=== PATIENT | female | born 1950 | race Caucasian/White ===

== ENCOUNTER → 2017-03-15 | Outpatient (CLI) | payer MEDICARE, OTHER ==
--- NOTE | 2017-03-20 13:04 | MM ---
Reason for exam: screening (asymptomatic). Last mammogram was performed 1 year ago. History: Patient is postmenopausal. Took hormonal contraceptives for 2 years. Physical Findings: A clinical breast exam by your physician is recommended on an annual basis and results should be correlated with mammographic findings. MG 3D Screening Mammo W/Cad Bilateral CC and MLO view(s) were taken. Prior study comparison: March 13, 2016, bilateral MG 3d screening mammo w/cad. March 04, 2015, bilateral MG screening mammo w CAD. January 05, 2014, bilateral MG diagnostic mammo w CAD ZIYAD. There is chronic nodularity bilaterally. No significant changes when compared with prior studies. ASSESSMENT: Benign, BI-RAD 2 RECOMMENDATION: Routine screening mammogram of both breasts in 1 year.
== END | disposition home or self-care (01) ==
LOC: RADMAMWWP 13:07
PROVIDERS: ATTEND Internal Medicine
DX: Z12.31 Encounter for screening mammogram for malignant neoplasm of breast (principal)
CPT/HCPCS: 77063; G0202

== ENCOUNTER → 2018-05-06 | Outpatient (CLI) | payer MEDICARE, OTHER ==
--- NOTE | 2018-05-08 11:17 | MM ---
Reason for exam: screening (asymptomatic). Last mammogram was performed 1 year and 2 months ago. History: Patient is postmenopausal. Took hormonal contraceptives for 2 years. MG 3D Screening Mammo W/Cad Bilateral CC and MLO view(s) were taken. Prior study comparison: March 15, 2017, bilateral MG 3d screening mammo w/cad. March 13, 2016, bilateral MG 3d screening mammo w/cad. There are scattered fibroglandular densities. Chronic nodularity bilateral. No significant changes when compared with prior studies. ASSESSMENT: Benign, BI-RAD 2 RECOMMENDATION: Routine screening mammogram of both breasts in 1 year.
== END ==
LOC: RADMAMWWP 07:39
PROVIDERS: ATTEND Internal Medicine
DX: Z12.31 Encounter for screening mammogram for malignant neoplasm of breast (principal)
CPT/HCPCS: 77063; 77067

== ENCOUNTER → 2019-05-28 | Outpatient (CLI) | payer MEDICARE ==
--- NOTE | 2019-06-01 09:49 | MM ---
Reason for exam: screening (asymptomatic). Last mammogram was performed 1 year and 1 month ago. History: Patient is postmenopausal. Took hormonal contraceptives for 2 years. Physical Findings: A clinical breast exam by your physician is recommended on an annual basis and results should be correlated with mammographic findings. MG 3D Screening Mammo W/Cad Bilateral CC and MLO view(s) were taken. Prior study comparison: May 06, 2018, bilateral MG 3d screening mammo w/cad. March 15, 2017, bilateral MG 3d screening mammo w/cad. The breast tissue is heterogeneously dense. This may lower the sensitivity of mammography. There are round oval circumscribed bilateral masses throughout both breasts however two on the right appear larger, both in the upper outer quadrant at middle depth 6.5cm from nipple and 8cm from nipple. Benign appearing bilateral calcifications. No suspicious abnormality on the left. ASSESSMENT: Incomplete: need additional imaging evaluation, BI-RAD 0 RECOMMENDATION: Ultrasound of the right breast. (upper outer quadrant) [facility] will attempt to contact patient to return for ultrasound.
== END | disposition home or self-care (01) ==
LOC: RADMAMWWP 12:23
PROVIDERS: ATTEND Internal Medicine
DX: Z12.31 Encounter for screening mammogram for malignant neoplasm of breast (principal)
CPT/HCPCS: 77063; 77067

== ENCOUNTER → 2019-06-16 | Outpatient (CLI) | payer MEDICARE ==
--- NOTE | 2019-06-17 11:54 | USB ---
Reason for exam: additional evaluation requested from abnormal screening. History: Patient is postmenopausal. Took hormonal contraceptives for 2 years. Physical Findings: Nurse did not find any significant physical abnormalities on exam. US Breast Workup Limited RT Technologist: Michelle Blanco Right limited breast ultrasound including focal area of concern, retroareolar and axilla demonstrates a 0.8 x 0.6 x 0.4cm cystic lesion at 9 o'clock, a 0.7 x 0.6 x 0.4cm cystic lesion at 9 o'clock and a 0.3 x 0.3 x 0.2cm cystic lesion at 2 o'clock. These results were verbally communicated with the patient and result sheet given to the patient on 06/16/19. ASSESSMENT: Probably benign, BI-RAD 3 RECOMMENDATION: Follow-up diagnostic mammogram of the right breast in 6 months.
== END | disposition home or self-care (01) ==
LOC: RADUSWWP 14:36
PROVIDERS: ATTEND Internal Medicine
DX: R92.8 Other abnormal and inconclusive findings on diagnostic imaging of breast (principal)

== ENCOUNTER → 2020-03-23 | Outpatient (CLI) | payer MEDICARE ==
--- NOTE | 2020-03-24 11:00 | MM ---
Reason for exam: follow-up at short interval from prior study. Last mammogram was performed 10 months ago. History: Patient is postmenopausal. Took hormonal contraceptives for 2 years. MG 3D Diag Mammo W/Cad RT CC and MLO view(s) were taken of the right breast. Prior study comparison: May 28, 2019, bilateral MG 3d screening mammo w/cad. May 06, 2018, bilateral MG 3d screening mammo w/cad. The breast tissue is heterogeneously dense. This may lower the sensitivity of mammography. There is chronic nodularity in the left breast. There is no dominant lesion. No significant new findings when compared with previous films. These results were verbally communicated with the patient and result sheet given to the patient on 03/23/20. ASSESSMENT: Benign, BI-RAD 2 RECOMMENDATION: Return to routine screening mammogram schedule for both breasts. Back on schedule.
== END | disposition home or self-care (01) ==
LOC: RADMAMWWP 14:11
PROVIDERS: ATTEND Internal Medicine
DX: R92.8 Other abnormal and inconclusive findings on diagnostic imaging of breast (principal)
CPT/HCPCS: 77065; G0279; 77061

== ENCOUNTER → 2020-08-05 | Outpatient (CLI) | payer MEDICARE ==
--- NOTE | 2020-08-08 08:24 | MM ---
Reason for exam: screening (asymptomatic). Last mammogram was performed 4 months ago. History: Patient is postmenopausal. Took hormonal contraceptives for 2 years. Physical Findings: A clinical breast exam by your physician is recommended on an annual basis and results should be correlated with mammographic findings. MG 3D Screening Mammo W/Cad Bilateral CC and MLO view(s) were taken. Prior study comparison: March 23, 2020, right breast MG 3d diag mammo w/cad RT. May 28, 2019, bilateral MG 3d screening mammo w/cad. The breast tissue is heterogeneously dense. This may lower the sensitivity of mammography. There are benign appearing round calcifications bilaterally. There is chronic nodularity bilaterally. There is no new dominant lesion. There is no discrete abnormality. ASSESSMENT: Benign, BI-RAD 2 RECOMMENDATION: Routine screening mammogram of both breasts in 1 year.
== END | disposition home or self-care (01) ==
LOC: RADMAMWWP 11:04
PROVIDERS: ATTEND Internal Medicine
DX: Z12.31 Encounter for screening mammogram for malignant neoplasm of breast (principal)
CPT/HCPCS: 77063; 77067

== ENCOUNTER → 2020-11-23 | Outpatient (CLI) | payer MEDICARE ==
--- NOTE | 2020-11-23 12:59 | US ---
EXAMINATION TYPE: US venous doppler duplex LE LT DATE OF EXAM: 11/23/2020 12:42 PM COMPARISON: NONE CLINICAL HISTORY: R22.42 SWELLING LEFT LOWER LIMB. Swelling left ankle and foot x 3 days; patient sta alcides fell on left leg 3 weeks ago. SIDE PERFORMED: left TECHNIQUE: The lower extremity deep venous system is examined utilizing real time linear array sonog cielo with graded compression, doppler sonography and color-flow sonography. VESSELS IMAGED: Common Femoral Vein Deep Femoral Vein Greater Saphenous Vein * Femoral Vein: Dual patent and compressible veins noted here Popliteal Vein Small Saphenous Vein * Proximal Calf Veins (* superficial vessels) Left Leg: Echogenic thickening of valves noted at left distal popliteal vein causing nonmobility, ot herwise is negative for DVT. Edema channels are imaged at left ankle. IMPRESSION: 1. No evidence of deep venous thrombosis of the left lower extremity. 2. There is extensive edema within the left ankle subcutaneous soft tissues. 3. Echogenic thickening of the valves at the distal left popliteal vein causing nonmobility.
--- NOTE | 2020-11-23 16:00 | XR ---
Left hand HISTORY: Pain in left hand, trauma 3 weeks prior 3 views of left hand Bone mineralization is reduced. There are arthropathy changes at the interphalangeal joints. Alignmen t is maintained. I question some irregularity of the triquetral bone on the frontal view. There may b e some associated soft tissue swelling. impression: Correlate for point tenderness the level of the triquetrum fracture, CT may be of benefit .
== END | disposition home or self-care (01) ==
LOC: RADUSWWP 11:49
PROVIDERS: ATTEND Internal Medicine
DX: M79.642 Pain in left hand (principal); R22.42 Localized swelling, mass and lump, left lower limb

== ENCOUNTER → 2021-03-17 | Outpatient (CLI) | payer MEDICARE ==
--- NOTE | 2021-03-19 08:02 | CT ---
EXAMINATION TYPE: CT hand LT w con DATE OF EXAM: 03/17/2021 COMPARISON: Left hand x-ray November 23, 2020 HISTORY: Continued left hand and wrist pain following fall injury months ago CT DLP: 198.8 mGycm Automated exposure control for dose reduction was used. CONTRAST: Performed with IV Contrast, patient injected with 100 mL of Isovue 300. FINDINGS: There is moderate to severe narrowing with mild to moderate spurring throughout the PIP and DIP joints of the phalanges. Findings are greatest over the second and third PIP joints. Relative sp aring of the MCP joints is noted. There is subchondral cystic change with narrowing at the trapezoid articulation with overlying pisifo rm. There is moderate triscaphe joint narrowing. There is moderate narrowing at the ulnar base of the first metacarpal with mild spurring. No acute or subacute displaced fracture is evident. Distal radi ocarpal joints are maintained. No suspicious soft tissue swelling or focal fluid collection. Carpal tunnel is preserved. No suspicio us enhancement noted. IMPRESSION: Multilevel degenerative changes as detailed above.
== END | disposition home or self-care (01) ==
LOC: RADCTMAIN 16:44
PROVIDERS: ATTEND Internal Medicine
DX: M19.042 Primary osteoarthritis, left hand (principal); M19.032 Primary osteoarthritis, left wrist
CPT/HCPCS: 82565; 84520; 36415; 73201; Q9967

== ENCOUNTER → 2021-12-18 | Outpatient (CLI) | payer MEDICARE ==
--- NOTE | 2021-12-18 11:56 | BD ---
EXAMINATION TYPE: Axial Bone Density DATE OF EXAM: 12/18/2021 COMPARISON: NONE CLINICAL HISTORY: 71 year old Female. ICD-10 CODE: M85.88 other disorder of bone Height: 62.5 Weight: 261.2 FRAX RISK QUESTIONS: Alcohol (3 or more units per day): no Family History (Parent hip fracture): no Glucocorticoids (More than 3mos): no (Ex: prednisone, prednisolone, methylprednisolone, dexamethasone, and hydrocortisone). History of Fracture in Adulthood: no Secondary Osteoporosis: 1. Type 1 Diabetes: no 2. Hyperthyroidism: no 3. Menopause before 45: yes 4. Malnutrition: no 5. Chronic liver disease: no Rheumatoid Arthritis: no Current Tobacco Use: no RISK FACTORS HISTORY OF: Surgery to Spine/Hip(right/left)/Wrist (right/left): no Family History of Osteoporosis: no Active: yes Diet low in dairy products/other sources of calcium: yes Postmenopausal woman: yes Lost more than 2 inches in height since high school: no MEDICATIONS: diabetic meds Additional History: EXAM MEASUREMENTS: Bone mineral densitometry was performed using the [employer] System. Bone mineral density as measured about the Lumbar spine is: ----- L1-L4(G/cm2): 1.550 T Score Values are as follows: ----- L1: 2.1 ----- L2: 2.8 ----- L3: 4.1 ----- L4: 3.1 ----- L1-L4: 3.1 Bone mineral density has: increased 3.5 % since study of: 01.05.2014 Bone mineral density about the R hip (g/cm2): 1.052 Bone mineral density about the L hip (g/cm2): 1.018 T Score values are as follows: -----R Neck: 0.1 -----L Neck: -0.1 -----R Total: 1.0 -----L Total: 0.7 Bone mineral density has: decreased -3.6 % since study of: 01.05.2014 FRAX%s: The graph provided illustrates a 2.1% chance for a major osteoporotic fx and a 0.2% chance fo r the hips probability for fx in 10 years time. IMPRESSION: No evidence for osteoporosis or osteopenia NOTE: T-SCORE=SD OF THE YOUNG ADULT MEAN.
--- NOTE | 2021-12-19 19:54 | MM ---
Reason for Exam: Screening (asymptomatic). Last mammogram was performed 1 year(s) and 5 month(s) ago. Patient History: Menarche at age 11. First Full-Term at age 16. Postmenopausal. Patient used Hormonal Contraceptives for 2 years. Risk Values: Kelley 5 year model risk: 1.3%. NCI Lifetime model risk: 3.1%. Prior Study Comparison: 05/28/2019 Bilateral Screening Mammogram, [facility]. 03/23/2020 Right Diagnostic Mammogram, [facility]. 08/05/2020 Bilateral Screening Mammogram, [facility]. Tissue Density: There are scattered fibroglandular densities. Findings: Analyzed By CAD. Extensive bilateral circumscribed breast nodularity appears largely chronic. Some of the nodules show slight interval fluctuation. This is an overall benign pattern. Some scattered benign vascular calcifications as well as diffuse and grouped punctate/round calcifications are also noted. No significant change from prior exams. Overall Assessment: Benign, BI-RAD 2 Management: Screening Mammogram of both breasts in 1 year. 1. A clinical breast exam by your physician is recommended on an annual basis and results should be correlated with mammographic findings. 2. Patient should continue monthly self breast exams. 3. This exam should not preclude additional follow-up of suspicious palpable abnormalities. Electronically signed and approved by: Leilani Paula M.D. Radiologist
== END | disposition home or self-care (01) ==
LOC: RADMAMWWP 07:19
PROVIDERS: ATTEND Internal Medicine
DX: Z12.31 Encounter for screening mammogram for malignant neoplasm of breast (principal); M85.88 Other specified disorders of bone density and structure, other site
CPT/HCPCS: 77063; 77067; 77080

== ENCOUNTER → 2023-01-03 | Outpatient (CLI) | payer MEDICARE ==
--- NOTE | 2023-01-03 10:05 | XR ---
EXAMINATION TYPE: XR Hip Complete RT DATE OF EXAM: 01/03/2023 9:58 AM INDICATION: Patient age:Female; 72 years old; Reason for study: M54.50; [facility]. COMPARISON: CT abdomen and pelvis 10/21/2014 TECHNIQUE: The right hip was examined in the frontal and lateral projections . FINDINGS: No evidence of any acute osseous pathology, joint dislocation, or soft tissue swelling. Mil d medial joint space narrowing with acetabular sclerosis and marginal acetabular spurring noted. IMPRESSION: 1. No acute osseous pathology. 2. Mild osteoarthritic changes of the right hip.
--- NOTE | 2023-01-03 10:10 | XR ---
EXAMINATION TYPE: XR lumbosacral spine min 4V DATE OF EXAM: 01/03/2023 9:58 AM INDICATION: Patient age:Female; 72 years old; Reason for study: M54.50; [facility]. COMPARISON: None TECHNIQUE: Frontal, lateral , bilateral oblique and coned in L5-S1 lateral views of the spine. FINDINGS: There are 5 lumbar type vertebral bodies identified. No evidence of any acute osseous patho logy. No evidence of loss of vertebral body height is seen. Grade 1 anterolisthesis of L5 on S1 with bilateral pars defects. Multilevel disc space narrowing with endplate sclerosis and anterior osteoph ytosis. Multilevel facet arthropathy. Cholecystectomy clips in the right upper quadrant. IMPRESSION: 1. No acute process. 2. Grade 1 anterolisthesis of L5 on S1 with bilateral pars defects. Mild to moderate multilevel dege nerative disc disease and facet arthropathy.
== END | disposition home or self-care (01) ==
LOC: RADXRMAIN 09:22
PROVIDERS: ATTEND Internal Medicine
DX: M51.37 Other intervertebral disc degeneration, lumbosacral region (principal); M43.17 Spondylolisthesis, lumbosacral region; M47.817 Spondylosis without myelopathy or radiculopathy, lumbosacral region; M16.11 Unilateral primary osteoarthritis, right hip
CPT/HCPCS: 72110; 73502

== ENCOUNTER → 2023-01-10 | Outpatient (CLI) | payer MEDICARE ==
--- NOTE | 2023-01-11 08:09 | MM ---
Reason for Exam: Screening (asymptomatic). Last mammogram was performed 1 year(s) and 1 month(s) ago. Patient History: Menarche at age 11. First Full-Term at age 16. Postmenopausal. Patient used Hormonal Contraceptives for 2 years. Risk Values: Kelley 5 year model risk: 1.3%. NCI Lifetime model risk: 3.0%. Prior Study Comparison: 03/23/2020 Right Diagnostic Mammogram, [facility]. 08/05/2020 Bilateral Screening Mammogram, [facility]. 12/18/2021 Bilateral MG 3D screening mammo w/cad, [facility]. Tissue Density: The breast tissue is heterogeneously dense. This may lower the sensitivity of mammography. Findings: Analyzed By CAD. Pattern appears stable. Chronic nodularity is present bilaterally. There are stable appearing group of calcifications within the left breast. No suspicious groups of microcalcifications, spiculated or lobular masses, architectural distortion or other secondary signs of malignancy are mammographically apparent. Overall Assessment: Benign, BI-RAD 2 Management: Screening Mammogram of both breasts in 1 year. A negative mammogram report should not preclude additional follow up of suspicious palpable abnormalities. Patient should continue monthly self breast exam. A clinical breast exam by your physician is recommended on an annual basis and results should be correlated with mammographic findings. Electronically signed and approved by: Solitario Vogel D.O. Radiologis
== END | disposition home or self-care (01) ==
LOC: RADMAMWWP 14:59
PROVIDERS: ATTEND Internal Medicine
DX: Z12.31 Encounter for screening mammogram for malignant neoplasm of breast (principal); Z78.0 Asymptomatic menopausal state
CPT/HCPCS: 77063; 77067

== ENCOUNTER → 2024-01-13 | Outpatient (CLI) | payer MEDICARE ==
--- NOTE | 2024-01-13 14:04 | MR ---
EXAMINATION TYPE: MR shoulder RT wo con DATE OF EXAM: 01/13/2024 COMPARISON: None HISTORY: Right shoulder pain, injury 1 month ago. TECHNIQUE: Multiplanar, multisequence imaging of the right shoulder is performed without contrast. FINDINGS: There is marked osteoarthritic change of the right AC joint resulting in moderate shoulder impingemen t. There is no glenohumeral joint effusion. There are multiple subchondral cysts in the lateral and ante rior humeral head. There are full-thickness tears of both the infraspinatus and supraspinatus tendons just proximal to t heir insertion on the greater tuberosity. There is thinning of the tendons proximally with slight ret raction of the musculotendinous junction immediately. The subscapularis tendon is intact. The biceps tendon is small in size consistent with atrophy. The b iceps anchor is intact. The cartilaginous labrum appears grossly intact. IMPRESSION: Multiple rotator cuff tears and shoulder impingement as described above.
== END | disposition home or self-care (01) ==
LOC: RADMRIMAIN 10:50
PROVIDERS: ATTEND Orthopaedic Surgery
DX: M25.811 Other specified joint disorders, right shoulder (principal); M75.101 Unspecified rotator cuff tear or rupture of right shoulder, not specified as traumatic

== ENCOUNTER → 2024-01-13 | Outpatient (CLI) | payer MEDICARE ==
--- NOTE | 2024-01-16 13:56 | MM ---
Reason for Exam: Screening (asymptomatic). Last screening mammogram was performed 12 month(s) ago. Patient History: Menarche at age 11. First Full-Term at age 16. Postmenopausal. Patient used Hormonal Contraceptives for 2 years. Risk Values: Kelley 5 year model risk: 1.3%. NCI Lifetime model risk: 2.8%. Prior Study Comparison: 08/05/2020 Bilateral Screening Mammogram, [facility]. 12/18/2021 Bilateral MG 3D screening mammo w/cad, [facility]. 01/10/2023 Bilateral MG 3D screening mammo w/cad, [facility]. Tissue Density: There are scattered areas of fibroglandular density. Findings: Analyzed By CAD. Right breast: There is no suspicious group of microcalcifications or new suspicious mass. Benign-appearing calcifications right breast. Left breast: There is no suspicious group of microcalcifications or new suspicious mass. Benign-appearing calcifications left breast. Overall Assessment: Benign, BI-RAD 2 Management: Screening Mammogram of both breasts in [address] [facility] will attempt to contact patient to return for supplemental views and ultrasound if indicated. Patient should continue monthly self-breast exams. A clinical breast exam by your physician is recommended on an annual basis. This exam should not preclude additional follow-up of suspicious palpable abnormalities. Note on Kelley scores and lifetime risk: 1. A Kelley score greater than 3% is considered moderate risk. If this is the case, consider specialist referral to assess eligibility for a risk reducing agent. 2. If overall lifetime risk for the development of breast cancer is 20% or higher, the patient may qualify for future screening with alternating mammogram and breast MRI. Electronically signed and approved by: Ronan Suazo DO
== END | disposition home or self-care (01) ==
LOC: RADMAMWWP 11:39
PROVIDERS: ATTEND Internal Medicine
DX: Z12.31 Encounter for screening mammogram for malignant neoplasm of breast (principal); Z78.0 Asymptomatic menopausal state
CPT/HCPCS: 77063; 77067

== ENCOUNTER 2024-02-17 09:00 | Day surgery (SDC) | payer MEDICARE ==
[~2024-02-17 09:00] MED LIST: DEXAMETHASONE SOD PHOSPHATE 4 MG/ML 1 ML VIAL ONE; LACTATED RINGERS 1,000 ML BAG ONE; MIDAZOLAM 2 MG/2 ML VIAL ONE; ONDANSETRON 4 MG/2 ML VIAL ONE; ROPIVACAINE 5 MG/ML 30 ML VIAL ONE; fentaNYL (PF) 50 MCG/ML 2 ML AMP ONE
[2024-02-17] MEDS ORDERED: SUCCINYLCHOLINE CHLORIDE 200 MG/10 ML VIAL IV ONE (09:47)
[2024-02-17] MEDS ORDERED: PROPOFOL 10 MG/ML 20 ML VIAL IV ONE (09:47)
[2024-02-17] MEDS ORDERED: LIDOCAINE 1% INJ 10MG/ML (20 ML MDV) ONE (09:47)
[2024-02-17] MEDS ORDERED: PHENYLEPHRINE-0.9% NACL SYG 1,000 MCG/10 ML SYRINGE ONE (09:47)
[2024-02-17] MEDS ORDERED: fentaNYL (PF) 50 MCG/ML 2 ML AMP ONE (09:47)
[2024-02-17] MEDS ORDERED: SODIUM CHLORIDE 0.9% IRRIG 3,000 ML BAG IRRIGATION ONE (09:52)
--- NOTE | 2024-02-28 15:51 | HP ---
HISTORY AND PHYSICAL DATE OF SURGERY: 02/17/2024. HISTORY OF PRESENT ILLNESS: Gabriella Quintero is a 73-year-old patient seen with progressive right shoulder pain. We discussed options regarding treatment. She elected to proceed with right shoulder arthroscopy. Consent was obtained. Medical clearance was provided by Dr. Rincon. PAST MEDICAL HISTORY: Hypertension, qqt-ldddult-yqvvjlkmq diabetes, and hyperlipidemia. PAST SURGICAL HISTORY: Cholecystectomy, herniorrhaphy, total knee arthroplasty, ganglion cyst excision, and colostomy. DAILY MEDICATIONS: 1. Bisoprolol/hydrochlorothiazide. 2. Celebrex. 3. Metformin. 4. Losartan. 5. Ozempic. 6. Rosuvastatin. 7. Tylenol. ALLERGIES: Morphine, codeine, and penicillin. SOCIAL HISTORY: She denies tobacco use. PHYSICAL EVALUATION OF THE RIGHT SHOULDER: Flexion is 90 degrees. Abduction is 80 degrees. External rotation is 30 degrees with pain and weakness. Tenderness along the anterolateral acromion rotator cuff insertion site. Impingement is positive at 70 degrees. Drop-arm sign is positive. Distal neurovascular exam is intact. RADIOGRAPHS: Radiographs of the right shoulder showed type 2 acromion, calcific body consistent with calcific tendinitis as well as cystic changes of the greater tuberosity. MRI of the right shoulder showed rotator cuff tears, acromioclavicular joint osteoarthritis. IMPRESSION: 1. Right shoulder impingement with rotator cuff tears. 2. Right shoulder acromioclavicular joint osteoarthritis. 3. Hypertension. 4. Hyperlipidemia. 5. Rcm-wqymwxo-rutqvyqan diabetes. PLAN: Right shoulder arthroscopy with subacromial decompression, arthroscopic rotator cuff repair, Kianna procedure, and debridement. MMODL / IJN: [id number] /
--- NOTE | 2024-02-28 15:52 | OP ---
OPERATIVE REPORT DATE OF SERVICE : 02/17/2024 PREOPERATIVE DIAGNOSIS: Right shoulder impingement. POSTOPERATIVE DIAGNOSES: 1. Right shoulder rotator cuff tear. 2. Right shoulder impingement. 3. Right shoulder acromioclavicular joint osteoarthritis. 4. Right shoulder superficial labral tear. PROCEDURES: 1. Right shoulder arthroscopic rotator cuff repair. 2. Right shoulder arthroscopic subacromial decompression. 3. Right shoulder arthroscopic Kianna procedure. 4. Right shoulder arthroscopic debridement of labral tear. ANESTHESIA: General with an interscalene block. ESTIMATED BLOOD LOSS: 10 cc. IMPLANTS UTILIZED: Four Arthrex 4.75 SwiveLock anchors. COMPLICATIONS: None. INDICATIONS FOR PROCEDURE: Gabriella Quintero is a patient who is seen with progressive right shoulder pain. After we had treatment options discussed with her, she elected to proceed with right shoulder arthroscopy. Consent was obtained. DESCRIPTION OF PROCEDURE: The patient was taken to the operative suite after having undergone interscalene block by the Department of Anesthesia. She received preoperative IV antibiotics. She underwent a general anesthetic by the department of anesthesia. She was then placed in a lateral acromial position appropriately padded and secured. The right upper extremity was placed in longitudinal traction utilizing 10 pounds. The right shoulder was prepped and draped in normal sterile orthopedic fashion. I made an incision in the posterior aspect of the shoulder for a posterior working portal site. Trocar and cannula were inserted in the glenohumeral joint. Arthroscopy was now initiated. I introduced the anterior portal site, incision was made. Trocar inserted. I reduced a probe and noted superficial tearing of the superior and anterior labrum. The biceps tendon was absent. There were grade 2 chondromalacia changes of the humeral head, predominantly superiorly without significant osteochondral tears. I introduced a motorized shaver and debrided out the superficial labral tear getting down to stable labral tissue. I probed the labrum and it was stable. Instruments were now removed from the glenohumeral joint. The trocar and cannula were inserted in subacromial space. Arthroscopy initiated. I made an incision 2 fingerbreadths lateral to the acromion and introduced a trocar followed by ArthroCare cautery. I debrided the thick subacromial bursal tissue, exposed the undersurface of the anterior acromion, which was very prominent and noted diminished subacromial space. I inserted a michael and I performed a subacromial decompression, decompressed the subacromial space very nicely. I turned my attention to the acromioclavicular joint and noted significant osteoarthritis. I introduced my michael from the anterior portal site and removed about 8 mm of the distal clavicle, performed a Kianna procedure and I had a stable Kianna procedure. I turned my attention to the rotator cuff tendon. There was a 4 cm tear. I debrided the margins again on a stable tendon tissue. I debrided the footprint with a motorized michael. I had to create a lateral portal sites off the lateral acromion. I introduced 2 medial row anchors with 2 sutures each, which created 4 limbs of suture exposed. With the assistance of AIDEN Eddy, I passed all these limbs of suture through good bites of rotator cuff tendon and out-punched 2 holes lateral for lateral fixation. Crisscrossed the sutures. I introduced anchors laterally, compressing the tendon down very nicely along the abraded footprint area. Residual suture limbs were clipped. We had a good stable repairing of the rotator cuff tendon tear. Instruments were now removed from the subacromial space. The portal sites were approximated with nylon suture. Sterile dressings were applied. The patient was placed into a sling, awakened, transferred to a bed in recovery in stable condition having tolerated the procedure well. AIDEN Eddy, assisted in all aspects of this procedure. ANAL / SORINN: [id number] /
== END 2024-02-17 13:45 ==
LOC: OR 09:00
PROVIDERS: ATTEND Orthopaedic Surgery
DX: M75.101 Unspecified rotator cuff tear or rupture of right shoulder, not specified as traumatic (principal); M75.41 Impingement syndrome of right shoulder; M19.011 Primary osteoarthritis, right shoulder; I10 Essential (primary) hypertension; E78.5 Hyperlipidemia, unspecified; E11.9 Type 2 diabetes mellitus without complications; Z79.84 Long term (current) use of oral hypoglycemic drugs; Z88.0 Allergy status to penicillin; Z88.5 Allergy status to narcotic agent; Z90.49 Acquired absence of other specified parts of digestive tract; Z96.659 Presence of unspecified artificial knee joint; Z79.1 Long term (current) use of non-steroidal anti-inflammatories (NSAID); Z79.899 Other long term (current) drug therapy; Z79.85 Long-term (current) use of injectable non-insulin antidiabetic drugs
CPT/HCPCS: 64415

== ENCOUNTER → 2025-01-13 | Outpatient (CLI) | payer MEDICARE ==
--- NOTE | 2025-01-13 13:33 | MM ---
Reason for Exam: Screening (asymptomatic). Last screening mammogram was performed 12 month(s) ago. Patient History: Menarche at age 11. First Full-Term at age 16. Postmenopausal. Patient used Hormonal Contraceptives for 2 years. Risk Values: Kelley 5 year model risk: 1.3%. NCI Lifetime model risk: 2.6%. Prior Study Comparison: 05/06/2018 Bilateral Screening Mammogram, [facility]. 05/28/2019 Bilateral Screening Mammogram, [facility]. 03/23/2020 Right Diagnostic Mammogram, [facility]. 08/05/2020 Bilateral Screening Mammogram, [facility]. 12/18/2021 Bilateral MG 3D screening mammo w/cad, [facility]. 01/10/2023 Bilateral MG 3D screening mammo w/cad, [facility]. 01/13/2024 Bilateral MG 3D screening mammo w/cad, [facility]. Tissue Density: The breasts are heterogeneously dense, which may obscure small masses. Findings: Analyzed By CAD. There are benign-appearing round and vascular calcifications bilaterally redemonstrated. Stable chronic nodularity bilaterally more prominent in the right breast. There is no suspicious new group of microcalcifications or new suspicious mass in either breast. Overall Assessment: Benign, BI-RAD 2 Management: Screening Mammogram of both breasts in 1 year. . Patient should continue monthly self-breast exams. A clinical breast exam by your physician is recommended on an annual basis. This exam should not preclude additional follow-up of suspicious palpable abnormalities. Note on Kelley scores and lifetime risk: 1. A Kelley score greater than 3% is considered moderate risk. If this is the case, consider specialist referral to assess eligibility for a risk reducing agent. 2. If overall lifetime risk for the development of breast cancer is 20% or higher, the patient may qualify for future screening with alternating mammogram and breast MRI. [facility], , 01/13/2025 1:30 PM. Electronically signed and approved by: Han Connor M.D.
== END | disposition home or self-care (01) ==
LOC: RADMAMWWP 13:06
PROVIDERS: ATTEND Internal Medicine
DX: Z12.31 Encounter for screening mammogram for malignant neoplasm of breast (principal); R92.333 Mammographic heterogeneous density, bilateral breasts; Z78.0 Asymptomatic menopausal state; Z92.0 Personal history of contraception
CPT/HCPCS: 77063; 77067